=== PATIENT | female | born 1990 | race American Indian/Alaskan Native ===

== ENCOUNTER 2018-07-30 11:03 | Outpatient (CLI) | payer MEDICAID ==
[2018-07-30] MEDS ORDERED: LACTATED RINGERS 500 ML IV ONE (11:47)
[2018-07-30 12:07] LABS: Bacteria,Urine 1+ /HPF (Negative); Bilirubin,Urine NEG (Negative); Blood,Urine NEG (Negative); Color,Urine Yellow (Yellow); Mucus,Urine FEW /HPF; Protein,Urine <15 mg/dL mg/dL (Negative); Urobilinogen,Urine < 2.0 mg/dL (<2.0)
[2018-07-30 12:49] LABS: Hematocrit 32.8 % (30.3-42.9); Hemoglobin 11.2 gm/dl (10.1-14.3); Mean Corpuscular HGB Conc 34 % (30-34); Mean Corpuscular Volume 87 fl (79-97); Platelet Count 258 K/mm3 (140-440); Red Blood Count 3.77 M/mm3 (3.65-5.03); Red Cell Distribution Width 13.8 % (13.2-15.2)
[2018-07-30 13:04] LABS: Alanine Aminotransferase 16 units/L (7-56); Uric Acid 4.2 mg/dL (3.5-7.6)
[2018-07-30 13:33] VITALS: BP 139/96
== END 2018-07-30 13:51 | disposition home or self-care (01) ==
LOC: TRG 11:03
PROVIDERS: ATTEND Obstetrics & Gynecology
DX: O47.03 False labor before 37 completed weeks of gestation, third trimester (principal); I10 Essential (primary) hypertension; Z3A.37 37 weeks gestation of pregnancy; Z87.891 Personal history of nicotine dependence
CPT/HCPCS: 36415; 81001; 82565; 83615; 84450; 84460; 84550; 85027

== ENCOUNTER 2018-08-01 08:09 | Outpatient (CLI) | payer MEDICAID ==
[2018-08-01 09:24] LABS: Creatinine,Urine 57.9 mg/dL (0.1-20.0)
== END 2018-08-01 08:45 | disposition home or self-care (01) ==
LOC: TRG 08:09
PROVIDERS: ATTEND Obstetrics & Gynecology
DX: O47.03 False labor before 37 completed weeks of gestation, third trimester (principal); O10.013 Pre-existing essential hypertension complicating pregnancy, third trimester; Z3A.37 37 weeks gestation of pregnancy; Z87.891 Personal history of nicotine dependence
CPT/HCPCS: 82570; 84156

== ENCOUNTER 2018-08-03 16:20 | Inpatient (IN) | payer MEDICAID ==
[2018-08-03] MEDS ORDERED: LACTATED RINGERS 1,000 ML IV SCH ×2 (18:00→23:45)
[2018-08-03 19:08] LABS: Bilirubin,Urine NEG (Negative); Blood,Urine SM (Negative); Color,Urine Straw (Yellow); Protein,Urine <15 mg/dL mg/dL (Negative); RBC,Urine < 1.0 /HPF (0.0-6.0); Urobilinogen,Urine < 2.0 mg/dL (<2.0); WBC,Urine < 1.0 /HPF (0.0-6.0)
[2018-08-03 21:11] LABS: Hematocrit 35.1 % (30.3-42.9); Hemoglobin 11.9 gm/dl (10.1-14.3); Mean Corpuscular HGB Conc 34 % (30-34); Mean Corpuscular Volume 87 fl (79-97); Platelet Count 291 K/mm3 (140-440); Red Blood Count 4.04 M/mm3 (3.65-5.03); Red Cell Distribution Width 13.7 % (13.2-15.2)
[2018-08-03 22:19] LABS: Alanine Aminotransferase 18 units/L (7-56); Albumin 3.8 g/dL (3.9-5); BUN/Creatinine Ratio 12; Blood Urea Nitrogen 6 mg/dL (7-17); Calcium 8.8 mg/dL (8.4-10.2); Hemolysis Index 39
[2018-08-03] MEDS ORDERED: SUBLIMAZE IV PRN (23:18)
[2018-08-03] MEDS ORDERED: CERVIDIL VG ONE (23:18)
[2018-08-04] MEDS: AMBIEN PO PRN (00:47)
--- NOTE | 2018-08-04 07:32 | History and Physical Report ---
History of Present Illness Date of examination: 08/04/18 Chief complaint: Elevated BP's History of present illness: Pt is a 27yo BF EDC 08/20/18; EGA 37 5/7 weeks presents to L&D complaining of elevated BP's with a headache. She received 1 visit at [facility] @ 21 weeks and has a history of previous C Section x 1 followed by successful x 2, and history of hypertension with her previous , but not on any medications. records are available and GBS is unknown. Past History Past Medical History: hematologic disorders (sickle cell trait) Past Surgical History: section Family/Genetic History: sickle cell/trait Social history: no significant social history, single - Obstetrical History Expected Date of Delivery: 08/20/18 Actual Gestation: 37 Week(s) 5 Day(s) : 6 Medications and Allergies Allergies Allergy/AdvReac Type Severity Reaction Status Date / Time ranitidine HCl [From Zantac] Allergy Swelling Verified 09/08/14 17:30 Home Medications Medication Instructions Recorded Confirmed Last Taken Type Lisinopril 10 mg PO DAILY 05/21/14 05/21/14 05/21/14 History Lisinopril/Hydrochlorothiazide 1 each PO QDAY #30 tablet 05/21/14 Unknown Rx [Zestoretic 20-12.5 mg] metroNIDAZOLE 0.75%(NF) [Metrogel 1 applicatio TP QHS #5 tube 11/29/15 Unknown Rx 0.75% TOPICAL] Active Meds: Active Medications Butorphanol Tartrate (Stadol) 2 mg IV Q2H PRN PRN Reason: Labor Pain Fentanyl (Sublimaze) 100 mcg IV Q2H PRN PRN Reason: Pain , Severe (7-10) Lactated Ringer's (Lactated Ringers) 1,000 mls @ 125 mls/hr IV DIRECT EMILY Zolpidem Tartrate (Ambien) 10 mg PO QHS PRN PRN Reason: Insomnia Last Admin: 08/04/18 00:47 Dose: 10 mg Documented by: Review of Systems All systems: negative - Vital Signs Vital signs: Vital Signs Pulse BP 104 H 139/94 08/03/18 17:51 08/03/18 17:51 Temp Pulse Resp BP Pulse Ox 100 H 134/73 08/04/18 02:19 08/04/18 02:19 - Physical Exam Cardiovascular: Regular rate Lungs: Positive: Clear to auscultation Abdomen: Positive: normal appearance Genitourinary (Female): Positive: normal external genitalia Uterus: Positive: enlarged Extremities: Positive: normal - Obstetrical FHR: category 1 Uterine Contraction Monitor Mode: External Cervical Dilatation: 1 (per nurse) Cervical Effacement Percentage: 50 (per nurse) station: -2 Uterine Contraction Pattern: Irregular Uterine Tone Measurement Phase: Contraction Uterine Contraction Intensity: Mild Results Result Diagrams: 08/03/18 20:59 08/03/18 21:40 Abnormal lab results 08/03/18 Range/Units 21:40 Sodium 136 L (137-145) mmol/L BUN 6 L (7-17) mg/dL Creatinine 0.5 L (0.7-1.2) mg/dL Albumin 3.8 L (3.9-5) g/dL All other labs normal. Assessment and Plan - Patient Problems (1) 37 weeks gestation of Onset Date: 08/04/18 Current Visit: Yes Status: Acute Plan to address problem: A: IUP @ 37 5/7 weeks Chronic hypertension - uncontrolled Poor care Previous C Section x 1 Previous x 2 P: Admit to L&D for cervidil/pitocin induction of labor (2) Hypertension Onset Date: 08/04/18 Current Visit: No Status: Acute Qualifiers: Hypertension type: essential hypertension Qualified Code(s): I10 - Essential (primary) hypertension
[2018-08-04] MEDS ORDERED: MINERAL OIL PO PRN (16:23)
[2018-08-04] MEDS ORDERED: BRETHINE SUB-Q PRN (16:23)
[2018-08-04] MEDS ORDERED: NARCAN 0.4 MG/1 ML IV PRN (16:23)
[2018-08-04] MEDS ORDERED: BRETHINE IVP PRN (16:23)
[2018-08-04] MEDS ORDERED: XYLOCAINE 2% INFILTRATI ONE (16:23)
[2018-08-04] MEDS ORDERED: ZOFRAN IV PRN (16:23)
[2018-08-04] MEDS ORDERED: PITOCin/NS 20 UNIT/1000ML DRIP 20 UNITS/1,000 ML BAG IV SCH (17:00)
[2018-08-04] MEDS ORDERED: PITOCin/NS 30 UNIT/500ML 30 UNITS/500 ML BAG IV SCH ×2 (17:00)
[2018-08-04] MEDS ORDERED: LACTATED RINGERS 1,000 ML IV SCH (17:00)
[2018-08-04] MEDS ORDERED: AMPICILLIN/NS 2 GM/100 ML 2 GM/100 ML BAG IV ONE (17:00)
[2018-08-04] MEDS: PITOCin/NS 30 UNIT/500ML 30 UNITS/500 ML BAG IV SCH ×2 (17:04→17:35)
[2018-08-04] MEDS: AMPICILLIN/NS 1 GM/50 ML 1 GM/50 ML BAG IV SCH (21:12)
[2018-08-05] MEDS: AMPICILLIN/NS 1 GM/50 ML 1 GM/50 ML BAG IV SCH ×4 (01:42→15:45)
[2018-08-05] MEDS: AMBIEN PO PRN (01:45)
--- NOTE | 2018-08-05 09:29 | Progress Note ---
Assessment and Plan - Patient Problems (1) 37 weeks gestation of Onset Date: 08/04/18 Current Visit: Yes Status: Acute Plan to address problem: A: IUP @ 37 6/7 weeks Chronic hypertension - uncontrolled Poor care Previous C Section x 1 Previous x 2 P: Continue with pitocin induction of labor (2) Hypertension Onset Date: 08/04/18 Current Visit: No Status: Acute Qualifiers: Hypertension type: essential hypertension Qualified Code(s): I10 - Essential (primary) hypertension Subjective - Subjective Date of service: 08/05/18 Principal diagnosis: IUP @ 37 6/7 weeks; Chronic hypertension Interval history: Pt is a 27yo BF EDC 08/20/18; EGA 37 6/7 weeks who presented to L&D complaining of elevated BP's with a headache. She received 1 visit at [facility] @ 21 weeks and has a history of previous C Section x 1 followed by successful x 2, and history of hypertension with her previous , but not on any medications. records are available and GBS is unknown. She received cervidil followed by low dose pitocin last night and is sudarshan q 3-5 mins. She denies headaches or blurred vision. Patient reports: movement normal, contractions, no new complaints, no loss of fluid, no vaginal bleeding Objective - Vital Signs Vital Signs: Vital Signs - 12hr 08/04/18 08/04/18 08/04/18 22:16 22:19 22:20 Temperature Pulse Rate 96 H 96 H 96 H Respiratory Rate Blood Pressure 121/101 153/91 149/79 08/04/18 08/04/18 08/05/18 23:09 23:10 00:09 Temperature 97.6 F Pulse Rate 93 H 87 Respiratory 18 Rate Blood Pressure 138/86 136/85 08/05/18 08/05/18 08/05/18 01:10 02:10 03:10 Temperature Pulse Rate 82 95 H 97 H Respiratory Rate Blood Pressure 141/83 153/101 140/69 08/05/18 08/05/18 08/05/18 04:00 04:02 04:04 Temperature 96.5 F L Pulse Rate 99 H 93 H Respiratory 16 Rate Blood Pressure 122/95 114/80 08/05/18 08/05/18 08/05/18 05:04 06:04 07:13 Temperature Pulse Rate 94 H 90 98 H Respiratory Rate Blood Pressure 125/77 121/81 141/78 08/05/18 08/05/18 07:45 09:15 Temperature 98.2 F Pulse Rate 91 H Respiratory 16 Rate Blood Pressure 138/80 - Exam Abdomen: Present: normal appearance, soft Uterus: Present: normal FHR: category 1 Uterine Contraction Monitor Mode: External Cervical Dilatation: 2 Cervical Effacement Percentage: 50 Uterine Contraction Pattern: Regular Uterine Tone Measurement Phase: Contraction Uterine Contraction Intensity: Mild - Labs Labs: Abnormal Labs 08/03/18 21:40 Sodium 136 L BUN 6 L Creatinine 0.5 L Albumin 3.8 L
[2018-08-05] MEDS: STADOL IV PRN (22:39)
[2018-08-06] MEDS: STADOL IV PRN (04:07)
[2018-08-06] MEDS: AMPICILLIN/NS 1 GM/50 ML 1 GM/50 ML BAG IV SCH (05:29)
--- NOTE | 2018-08-06 07:30 | Anesthesia Consultation ---
Anesthesia Consult and Med Hx Date of service: 08/06/18 - Airway Anesthetic Teeth Evaluation: Good ROM Head & Neck: Adequate Mental/Hyoid Distance: Adequate Mallampati Class: Class II Intubation Access Assessment: Probably Good - Pre-Operative Health Status ASA Pre-Surgery Classification: ASA3 Proposed Anesthetic Plan: Epidural, Spinal - Pulmonary Hx Asthma: No COPD: No Hx Pneumonia: No - Cardiovascular System Hx Hypertension: Yes (pre-eclampsia) - Central Nervous System Hx Seizures: No Hx Psychiatric Problems: No - Endocrine Hx Renal Disease: No Hx End Stage Renal Disease: No Hx Hypothyroidism: No Hx Hyperthyroidism: No - Hematic Hx Anemia: No Hx Sickle Cell Disease: Yes (trait) - Other Systems Hx Alcohol Use: No
--- NOTE | 2018-08-06 07:34 | Anesthesia Day of Surgery ---
Anesthesia Day of Surgery - Day of Surgery Patient Examined: Yes Patient H&P Reviewed: Yes Patient is NPO: Yes
--- NOTE | 2018-08-06 07:43 | Progress Note ---
Assessment and Plan - Patient Problems (1) 37 weeks gestation of Onset Date: 08/04/18 Current Visit: Yes Status: Acute Plan to address problem: A: IUP @ 38 0/7 weeks Chronic hypertension - uncontrolled Poor care Previous C Section x 1 Previous x 2 Failure to progress P: Will deliver by Repeat C Section. (2) Hypertension Onset Date: 08/04/18 Current Visit: No Status: Acute Qualifiers: Hypertension type: essential hypertension Qualified Code(s): I10 - Essential (primary) hypertension Subjective - Subjective Date of service: 08/06/18 Principal diagnosis: IUP @ 38 0/7 weeks; Chronic hypertension Interval history: Pt is a 27yo BF EDC 08/20/18; EGA 38 0/7 weeks who presented to L&D co mplaining of elevated BP's with a headache. She received 1 visit at [facility] @ 21 weeks and has a history of previous C Section x 1 followed by successful x 2, and history of hypertension with her previous , but not on any medications. records are available and GBS is unknown. She received cervidil followed by low dose pitocin then high dose pitocin and was sudarshan q 3-5 mins without cervical change all night long. She will therefore be delivered by C Section due to failure to progress. She denies headaches or blurred vision. Patient reports: movement normal, contractions, no new complaints, no loss of fluid, no vaginal bleeding Objective - Vital Signs Vital Signs: Vital Signs - 12hr 08/05/18 08/05/18 08/05/18 19:53 20:16 20:17 Temperature 97.4 F L Pulse Rate 77 81 Respiratory 18 Rate Blood Pressure 135/89 136/83 O2 Sat by Pulse Oximetry 08/05/18 08/05/18 08/05/18 20:47 21:17 21:47 Temperature Pulse Rate 88 87 137 H Respiratory Rate Blood Pressure 139/90 135/82 134/75 O2 Sat by Pulse Oximetry 08/05/18 08/05/18 08/05/18 22:17 22:47 23:00 Temperature Pulse Rate 89 86 89 Respiratory Rate Blood Pressure 143/92 129/91 O2 Sat by Pulse 98 Oximetry 08/05/18 08/05/18 08/05/18 23:05 23:10 23:15 Temperature Pulse Rate 89 86 103 H Respiratory Rate Blood Pressure O2 Sat by Pulse 99 97 99 Oximetry 08/05/18 08/05/18 08/05/18 23:17 23:20 23:25 Temperature Pulse Rate 94 H 102 H 101 H Respiratory Rate Blood Pressure 139/99 O2 Sat by Pulse 100 99 Oximetry 08/05/18 08/05/18 08/05/18 23:26 23:30 23:35 Temperature Pulse Rate 85 90 102 H Respiratory Rate Blood Pressure 148/90 O2 Sat by Pulse 100 100 Oximetry 08/05/18 08/05/18 08/05/18 23:40 23:45 23:47 Temperature Pulse Rate 82 96 H 88 Respiratory Rate Blood Pressure 133/85 O2 Sat by Pulse 100 100 Oximetry 08/05/18 08/05/18 08/06/18 23:50 23:55 00:00 Temperature Pulse Rate 84 99 H 80 Respiratory Rate Blood Pressure O2 Sat by Pulse 97 100 98 Oximetry 08/06/18 08/06/18 08/06/18 00:01 00:05 00:10 Temperature 98.1 F Pulse Rate 86 93 H Respiratory 18 Rate Blood Pressure O2 Sat by Pulse 97 98 Oximetry 08/06/18 08/06/18 08/06/18 00:15 00:17 00:20 Temperature Pulse Rate 89 96 H 89 Respiratory Rate Blood Pressure 131/88 O2 Sat by Pulse 98 97 Oximetry 08/06/18 08/06/18 08/06/18 00:25 00:30 00:35 Temperature Pulse Rate 97 H 89 97 H Respiratory Rate Blood Pressure O2 Sat by Pulse 97 99 98 Oximetry 08/06/18 08/06/18 08/06/18 00:40 00:45 00:47 Temperature Pulse Rate 78 80 86 Respiratory Rate Blood Pressure 126/86 O2 Sat by Pulse 98 98 Oximetry 08/06/18 08/06/18 08/06/18 00:50 00:55 01:00 Temperature Pulse Rate 82 82 84 Respiratory Rate Blood Pressure O2 Sat by Pulse 98 97 98 Oximetry 08/06/18 08/06/18 08/06/18 01:05 01:10 01:15 Temperature Pulse Rate 82 81 87 Respiratory Rate Blood Pressure O2 Sat by Pulse 98 98 99 Oximetry 08/06/18 08/06/18 08/06/18 01:17 01:18 01:20 Temperature Pulse Rate 71 79 73 Respiratory Rate Blood Pressure 146/100 O2 Sat by Pulse 80 L 100 Oximetry 08/06/18 08/06/18 08/06/18 01:25 01:30 01:35 Temperature Pulse Rate 79 80 79 Respiratory Rate Blood Pressure O2 Sat by Pulse 100 100 100 Oximetry 08/06/18 08/06/18 08/06/18 01:40 01:45 01:47 Temperature Pulse Rate 85 90 91 H Respiratory Rate Blood Pressure 133/83 O2 Sat by Pulse 100 100 Oximetry 08/06/18 08/06/18 08/06/18 01:50 01:55 02:00 Temperature Pulse Rate 74 80 81 Respiratory Rate Blood Pressure O2 Sat by Pulse 100 100 100 Oximetry 08/06/18 08/06/18 08/06/18 02:05 02:10 02:15 Temperature Pulse Rate 77 84 79 Respiratory Rate Blood Pressure O2 Sat by Pulse 100 100 100 Oximetry 08/06/18 08/06/18 08/06/18 02:18 02:20 02:25 Temperature Pulse Rate 78 75 82 Respiratory Rate Blood Pressure 150/95 O2 Sat by Pulse 100 100 Oximetry 08/06/18 08/06/18 08/06/18 02:29 02:31 02:36 Temperature Pulse Rate 54 L 106 H 85 Respiratory Rate Blood Pressure O2 Sat by Pulse 72 L 100 100 Oximetry 08/06/18 08/06/18 08/06/18 02:41 02:46 02:47 Temperature Pulse Rate 89 86 80 Respiratory Rate Blood Pressure 137/92 O2 Sat by Pulse 99 99 Oximetry 08/06/18 08/06/18 08/06/18 02:51 02:56 03:01 Temperature Pulse Rate 80 91 H 88 Respiratory Rate Blood Pressure O2 Sat by Pulse 99 98 98 Oximetry 08/06/18 08/06/18 08/06/18 03:06 03:11 03:16 Temperature Pulse Rate 91 H 84 82 Respiratory Rate Blood Pressure O2 Sat by Pulse 99 98 99 Oximetry 08/06/18 08/06/18 08/06/18 03:17 03:21 03:26 Temperature Pulse Rate 97 H 83 89 Respiratory Rate Blood Pressure 160/104 O2 Sat by Pulse 99 98 Oximetry 08/06/18 08/06/18 08/06/18 03:31 03:36 03:41 Temperature Pulse Rate 84 83 87 Respiratory Rate Blood Pressure O2 Sat by Pulse 99 98 98 Oximetry 08/06/18 08/06/18 08/06/18 03:46 03:47 03:51 Temperature Pulse Rate 82 82 78 Respiratory Rate Blood Pressure 129/87 O2 Sat by Pulse 98 98 Oximetry 08/06/18 08/06/18 08/06/18 03:56 04:01 04:06 Temperature Pulse Rate 88 79 78 Respiratory Rate Blood Pressure O2 Sat by Pulse 99 98 99 Oximetry 08/06/18 08/06/18 08/06/18 04:07 04:09 04:11 Temperature 98.7 F Pulse Rate 80 Respiratory 20 Rate Blood Pressure O2 Sat by Pulse 99 Oximetry 08/06/18 08/06/18 08/06/18 04:16 04:17 04:21 Temperature Pulse Rate 91 H 88 85 Respiratory Rate Blood Pressure 149/102 O2 Sat by Pulse 99 94 98 Oximetry 08/06/18 08/06/18 08/06/18 05:18 05:47 06:17 Temperature Pulse Rate 75 85 73 Respiratory Rate Blood Pressure 168/92 134/83 152/91 O2 Sat by Pulse Oximetry 08/06/18 08/06/18 06:47 07:17 Temperature Pulse Rate 86 83 Respiratory Rate Blood Pressure 139/80 142/89 O2 Sat by Pulse Oximetry - Exam Cardiovascular: Regular rate Abdomen: Present: normal appearance, soft Uterus: Present: normal FHR: category 1 Uterine Contraction Monitor Mode: External Cervical Dilatation: 4 (per nurse) Cervical Effacement Percentage: 50 (per nurse) station: -2 Uterine Contraction Pattern: Regular Uterine Tone Measurement Phase: Contraction Uterine Contraction Intensity: Moderate - Labs Labs: Abnormal Labs 08/03/18 21:40 Sodium 136 L BUN 6 L Creatinine 0.5 L Albumin 3.8 L
[2018-08-06] MEDS ORDERED: PITOCin/NS 20 UNIT/1000ML DRIP 20 UNITS/1,000 ML BAG IV SCH ×2 (08:00→10:00)
[2018-08-06] MEDS ORDERED: ANCEF/STERILE WATER 2 GM/20 ML 2 GM/20 ML SYRINGE IV NR (08:00)
[2018-08-06] MEDS ORDERED: SODIUM CHLORIDE FLUSH SYRINGE 10 ML IV PRN (08:00)
[2018-08-06] MEDS ORDERED: PEPCID IV NR (08:00)
[2018-08-06] MEDS ORDERED: BICITRA PO NR (08:00)
[2018-08-06] MEDS ORDERED: BENADRYL IV PRN (08:00)
[2018-08-06] MEDS ORDERED: PHENERGAN PO PRN (08:30)
[2018-08-06] MEDS ORDERED: TORADOL IV PRN (08:30)
[2018-08-06] MEDS ORDERED: NARCAN 0.4 MG/1 ML IV PRN ×2 (08:30→10:00)
[2018-08-06] MEDS ORDERED: DILAUDID IV PRN ×2 (08:30→09:00)
[2018-08-06] MEDS ORDERED: ZOFRAN IV PRN (08:30)
[2018-08-06] MEDS ORDERED: PHENERGAN PR PRN (08:30)
[2018-08-06] MEDS ORDERED: SENSORCAINE/DEXTR 0.75-8.25% INFILTRATI ONE (08:40)
[2018-08-06] MEDS ORDERED: LACTATED RINGERS 1,000 ML IV SCH (09:00)
[2018-08-06] MEDS ORDERED: REGLAN IV ONE (09:00)
[2018-08-06] MEDS ORDERED: WATER FOR IRRIG STERILE IR ONE (09:10)
[2018-08-06] MEDS ORDERED: NACL 0.9% IR ONE (09:10)
[2018-08-06] MEDS ORDERED: XYLOCAINE MPF 2% ONE (09:24)
[2018-08-06] MEDS ORDERED: ASTRAMORPH PF 10MG/10ML ONE (09:26)
--- NOTE | 2018-08-06 09:58 | Operative Report ---
Operative Report Operative Report: Date of procedure: 08/06/2018 Pre-operative diagnosis: 1. Intrauterine at 38-0/7 weeks 2. Chroni c hypertension 3. Previous 1 4. Previous 2 5. Failure to progress Post-operative diagnosis: Same Procedure name(s): Repeat low transverse section Surgeon: Yimi Fox MD Para Machine Operator: None Anesthesia: Spinal anesthesia by Dr. Morales EBL: 600 mL Findings: A 2585 g male Apgars 8 at 1 minute and 9 at 5 minutes. Clear amniotic fluid. Normal uterus. Normal tubes and ovaries bilaterally. Procedure: After the patient was prepped and draped in usual sterile fashion, and after satisfactory level of epidural anesthesia was obtained, the skin knife was used to make a transverse skin incision through the previous skin scar. The incision was excised down to layer of the fascia, which was nicked in the midline and extended laterally using the Bovie cautery. The rectus muscles were dissected off the rectus fascia both superiorly and inferiorly. The rectus bellies in the midline, and the peritoneum was entered under direct visualization. The peritoneal incision was extended superiorly and inferiorly. A bladder flap was created and the bladder blade was then placed. The uterus was scored in a curvilinear linear fashion, entered in the midline revealing clear amniotic fluid. The 's head was delivered onto the surgical field, and the oropharynx and nasopharynx were bulb suctioned. The rest of the 's body was delivered, cord was doubly clamped and cut and the infant was handed to the waiting respiratory team. The placenta was manually removed from the uterus, and the uterus removed from its normal anatomical position. After gentle uterine lavage, the incision was inspected and found to be without extensions. It was then closed in 2 layers using 0 Vicryl suture in a running interlocking fashion, the second layer imbricating the first. After good hemostasis was achieved, copious amounts or irrigation was performed, and the gutters were suctioned free of blood and blood clots. The Tisseel sealant was sprayed across the uterine incision. The uterus was then returned to its normal anatomical position, and after excellent hemostasis assured, the peritoneum was re-approximated using 3-0 Vicryl suture in a running interlocking fashion, and then the rectus muscles were re-approximated using 3-0 Vicryl suture in a [id number] configuration. The fascia was then re-approximated using 0 Vicryl suture in running interlocking fashion. The subcutaneous layer was made hemostatic using Bovie cautery, the Tisseel sealant was sprayed across the fascial incision and the skin edges re-approximated using 4-0 Vicryl suture in a sub-cuticular fashion. Patient tolerated the procedure well was transported to recovery in stable condition.
[2018-08-06] MEDS ORDERED: TYLENOL PO PRN (10:00)
[2018-08-06] MEDS ORDERED: SENOKOT PO PRN (10:00)
[2018-08-06] MEDS ORDERED: MYLICON PO PRN (10:00)
[2018-08-06] MEDS ORDERED: SODIUM CHLORIDE FLUSH SYRINGE 10 ML IV SCH (10:00)
[2018-08-06] MEDS ORDERED: LANSINOH TP PRN (10:00)
[2018-08-06] MEDS ORDERED: TUCKS PAD TP PRN (10:00)
[2018-08-06] MEDS ORDERED: MILK OF MAGNESIA PO PRN (10:00)
[2018-08-06] MEDS ORDERED: D5LR 1,000 ML IV SCH (10:00)
[2018-08-06] MEDS ORDERED: NEO SYNEPHRINE/NS Syringe(OR USE) IV ONE (10:02)
[2018-08-06] MEDS: ANCEF/NS 1 GM/50 ML 1 GM/50 ML BAG IV SCH (18:44)
[2018-08-06] MEDS: NORMODYNE PO SCH (18:44)
[2018-08-06] MEDS: PERCOCET 5/325 PO PRN (20:05)
[2018-08-06 21:43] LABS: Hematocrit 31.8 % (30.3-42.9); Hemoglobin 11.1 gm/dl (10.1-14.3)
[2018-08-07] MEDS: ANCEF/NS 1 GM/50 ML 1 GM/50 ML BAG IV SCH ×2 (00:01→07:38)
[2018-08-07] MEDS: PERCOCET 5/325 PO PRN (04:19)
[2018-08-07] MEDS ORDERED: BOOSTRIX IM ONE (06:00)
[2018-08-07] MEDS ORDERED: M-M-R II VACCINE SUB-Q ONE (10:01)
[2018-08-07] MEDS: FEOSOL PO SCH (10:02)
[2018-08-07] MEDS: NORMODYNE PO SCH ×2 (10:02→21:29)
[2018-08-07] MEDS: PRENATAL VITAMIN PO SCH (10:02)
--- NOTE | 2018-08-07 10:16 | Progress Note ---
Assessment and Plan - Patient Problems (1) 37 weeks gestation of Onset Date: 08/04/18 Current Visit: Yes Status: Resolved (2) Hypertension Onset Date: 08/04/18 Current Visit: No Status: Chronic Qualifiers: Hypertension type: essential hypertension Qualified Code(s): I10 - Essential (primary) hypertension (3) Status post Onset Date: 08/07/18 Current Visit: Yes Status: Resolved Plan to address problem: A: S/P Repeat C Section - POD #1 Doing well Chronic hypertension - stable on Labetolol 200mg BID P: Continue RPOC Anticipate discharge in 24-48hrs Subjective - Subjective Date of service: 08/07/18 Principal diagnosis: s/p C Section - POD #1 Interval history: Pt is feeling well without complaints. Bleeding improved. She is tolerating a liquid diet without nausea or vomiting. Patient reports: appetite normal, voiding normally, pain well controlled, flatus, ambulating normally, no dizzy ambulation, no nauseated [place]: doing well, nursing well, bottle feeding Objective - Vital Signs Latest vital signs: Vital Signs Temp Pulse Resp BP BP Pulse Ox 08/07/18 10:02 104 H 127/83 08/07/18 09:02 97.7 F 104 H 18 127/83 97 08/07/18 05:28 97.5 F L 99 H 20 125/89 96 08/07/18 05:17 18 08/07/18 04:19 20 08/07/18 04:00 18 128/78 08/06/18 23:16 130/80 08/06/18 21:34 98.1 F 87 20 134/84 98 08/06/18 21:05 18 08/06/18 20:05 16 08/06/18 16:18 97.9 F 73 18 147/96 99 08/06/18 11:50 98.2 F 70 20 131/79 08/06/18 11:00 98.3 F 87 18 136/78 100 08/06/18 10:45 70 16 132/88 100 08/06/18 10:30 73 18 127/86 100 Intake and Output 08/06/18 08/07/18 08/07/18 22:59 06:59 14:59 Intake Total 960 50 600 Output Total 800 Balance 160 50 600 Intake: IV 50 ANCEF/NS 1 GM/50 ML 1 gm 50 In 50 ml @ 100 mls/hr IV Q8H [facility] Rx#:[id number] Oral 600 360 Intake, Free Water 360 240 Output: Urine 800 Indwelling Catheter 800 Other: Total, Intake Amount 600 360 Total, Output Amount 800 # Voids Indwelling Catheter 1 1 Estimated Blood Loss 600 - Exam Abdomen: Present: normal appearance, soft Uterus: Present: normal, firm, fundal height below umbilicus Extremities: Present: normal Incision: Present: normal, dry, intact, dressed - Labs Labs: Laboratory Tests 08/03/18 08/03/18 08/03/18 17:21 20:59 21:40 WBC 7.4 RBC 4.04 Hgb 11.9 Hct 35.1 MCV 87 MCH 30 MCHC 34 RDW 13.7 Plt Count 291 Sodium 136 L Potassium 4.6 Chloride 102.5 Carbon Dioxide 24 Anion Gap 14 BUN 6 L Creatinine 0.5 L Estimated GFR > 60 BUN/Creatinine Ratio 12 Glucose 71 Calcium 8.8 Total Bilirubin 0.20 AST 19 ALT 18 Alkaline Phosphatase 100 Total Protein 6.6 Albumin 3.8 L Albumin/Globulin Ratio 1.4 Urine Color Straw Urine Turbidity Clear Urine pH 7.0 Ur Specific Baring 1.005 Urine Protein <15 mg/dl Urine Glucose (UA) Neg Urine Ketones Neg Urine Blood Sm Urine Nitrite Neg Urine Bilirubin Neg Urine Urobilinogen < 2.0 Ur Leukocyte Esterase Neg Urine WBC (Auto) < 1.0 Urine RBC (Auto) < 1.0 U Epithel Cells (Auto) 5.0 Blood Type Antibody Screen 08/04/18 08/06/18 01:00 21:27 WBC RBC Hgb 11.1 Hct 31.8 MCV MCH MCHC RDW Plt Count Sodium Potassium Chloride Carbon Dioxide Anion Gap BUN Creatinine Estimated GFR BUN/Creatinine Ratio Glucose Calcium Total Bilirubin AST ALT Alkaline Phosphatase Total Protein Albumin Albumin/Globulin Ratio Urine Color Urine Turbidity Urine pH Ur Specific Baring Urine Protein Urine Glucose (UA) Urine Ketones Urine Blood Urine Nitrite Urine Bilirubin Urine Urobilinogen Ur Leukocyte Esterase Urine WBC (Auto) Urine RBC (Auto) U Epithel Cells (Auto) Blood Type A POSITIVE Antibody Screen Negative
[2018-08-07] MEDS: NORCO 5/325 PO PRN ×2 (10:59→17:30)
[2018-08-07] MEDS: IBUPROFEN PO PRN ×2 (11:00→17:30)
[2018-08-08] MEDS: IBUPROFEN PO PRN ×2 (00:45→06:43)
[2018-08-08] MEDS: PERCOCET 5/325 PO PRN ×2 (00:45→12:26)
[2018-08-08 07:54] VITALS: BP 131/87
--- NOTE | 2018-08-08 10:42 | Progress Note ---
Assessment and Plan - Patient Problems (1) 37 weeks gestation of Onset Date: 08/04/18 Current Visit: Yes Status: Resolved (2) Hypertension Onset Date: 08/04/18 Current Visit: No Status: Chronic Qualifiers: Hypertension type: essential hypertension Qualified Code(s): I10 - Essential (primary) hypertension (3) Status post Onset Date: 08/07/18 Current Visit: Yes Status: Resolved Plan to address problem: A: S/P Repeat C Section - POD #2 Doing well Chronic hypertension - stable on Labetolol 200mg BID P: May go home today Follow up in the office in 1 week for BP check Subjective - Subjective Date of service: 08/08/18 Principal diagnosis: s/p C Section - POD #2 Interval history: Pt is feeling well without complaints. She is tolerating a reg diet without nausea or vomiting, ambulating and voiding without difficulty. She wants to go home today. Patient reports: appetite normal, voiding normally, pain well controlled, flatus, ambulating normally, no dizzy ambulation, no nauseated [place]: doing well, nursing well, bottle feeding Objective - Vital Signs Latest vital signs: Vital Signs Temp Pulse Resp BP BP Pulse Ox 08/08/18 07:30 98.0 F 82 18 131/87 08/08/18 06:43 18 08/08/18 00:45 18 08/07/18 23:30 98.7 F 77 16 101/74 08/07/18 21:29 99 H 118/68 08/07/18 16:39 97.8 F 93 H 18 116/75 99 Intake and Output 08/07/18 08/08/18 08/08/18 22:59 06:59 14:59 Intake Total 1080 Balance 1080 Intake: Oral 360 Intake, Free Water 720 Other: Total, Intake Amount 360 # Voids Indwelling Catheter 3 - Exam Abdomen: Present: normal appearance, soft Uterus: Present: normal, firm, fundal height below umbilicus Extremities: Present: normal Incision: Present: normal, dry, intact
--- NOTE | 2018-08-08 10:56 | Discharge Summary ---
Providers - Providers Date of Admission: 08/04/18 16:23 Date of discharge: 08/08/18 Attending physician: SAWYER HERZOG Primary care physician: SAWYER HERZOG Hospitalization Reason for admission: induction of labor, IUP at term, other (Previous C Section; Chronic hypertension - uncontrolled) Delivery: Procedure: section, repeat low transverse Episiotomy: none Laceration: none Incision: normal, dry, intact Other procedures: none complications: none Discharge diagnosis: IUP at term delivered baby: male Hospital course: Pt is a 27yo BF EDC 08/20/18; EGA 38 0/7 weeks who presented to L&D complaining of elevated BP's with a headache. She received 1 visit at [facility] @ 21 weeks and had a history of previous C Section x 1 followed by successful x 2, and history of hypertension with her previous , but was not on any medications. records were available and GBS was unknown. She received cervidil followed by low dose pitocin then high dose pitocin and was sudarshan q 3-5 mins without cervical change. She underwent an uncomplicated Repeat C Section due to failure to progress. By POD #2 she was tolerating a reg diet without nausea or vomiting, ambulating and voiding without difficulty. Her BP's remained stable on Labetolol 200mg BID. She was therefore discharged to home on POD #2 in stable condition. Condition at discharge: Good Disposition: DC-01 TO HOME OR SELFCARE - Discharge Diagnoses (1) 37 weeks gestation of Status: Resolved (2) Hypertension Status: Chronic Qualifiers: Hypertension type: essential hypertension Qualified Code(s): I10 - Essential (primary) hypertension (3) Status post Status: Resolved Plan - Discharge Medications Prescriptions: Ferrous Sulfate [Feosol 325 MG tab] 325 mg PO BID #60 tablet HYDROcodone/APAP 5-325 [[place] 5-325 mg TAB] 1 each PO Q6HR PRN #30 tablet PRN Reason: Pain, Moderate (4-6) Ibuprofen [Motrin 800 MG tab] 800 mg PO Q6H PRN #30 tablet PRN Reason: Pain, Mild (1-3) Labetalol [Normodyne TAB] 200 mg PO BID #60 tablet Vit-Fe Fumar-FA [ Vitamin] 1 each PO QDAY #30 tablet - Provider Discharge Summary Activity: routine, no sex for 6 weeks, no heavy lifting 4 weeks, no strenuous exercise Diet: routine Instructions: routine Additional instructions: [] Smoking cessation referral if applicable(refer to patient education folder for contact #) [] Refer to [facility] Book[facility] Call your doctor immediately for: * Fever > 100.5 * Heavy vaginal bleeding ( >1 pad per hour) * Severe persistent headache * Shortness of breath * Reddened, hot, painful area to leg or breast * Drainage or odor from incision. * Keep incision clean and dry at all times and follow doctor's instructions regarding bathing/showering Follow up in the office in 1 week for BP check - Follow up plan Follow up: SAWYER HERZOG MD [Primary Care Provider] - 7 Days
[2018-08-08] MEDS: NORMODYNE PO SCH (11:45)
[2018-08-08] MEDS: PRENATAL VITAMIN PO SCH (11:50)
[2018-08-08] MEDS: FEOSOL PO SCH (17:44)
== END 2018-08-08 15:15 | disposition home or self-care (01) | DRG 765 ==
LOC: TRG 16:20 → LD 17:24 → TRG 08-04 16:23 → LD 08-04 16:23 → UNDOADMIN 08-05 09:42 → LD 08-05 09:42 → OB 08-06 12:02
PROVIDERS: ADMIT Obstetrics & Gynecology; ATTEND Obstetrics & Gynecology
PROC: 10D00Z1 Extraction of Products of Conception, Low, Open Approach (ICD-10-PCS; principal; 2018-08-06)
PROC: 3E0234Z Introduction of Serum, Toxoid and Vaccine into Muscle, Percutaneous Approach (ICD-10-PCS; 2018-08-07)
DX: O34.211 Maternal care for low transverse scar from previous cesarean delivery (principal); O10.92 Unspecified pre-existing hypertension complicating childbirth; O62.2 Other uterine inertia; Z37.0 Single live birth; Z3A.37 37 weeks gestation of pregnancy; Z86.2 Personal history of diseases of the blood and blood-forming organs and certain disorders involving the immune mechanism; Z83.2 Family history of diseases of the blood and blood-forming organs and certain disorders involving the immune mechanism; Z88.8 Allergy status to other drugs, medicaments and biological substances; Z23 Encounter for immunization
CPT/HCPCS: 36415; 59200; 80053; 81001; 85014; 85018; 85027; 86850; 86900; 86901; G0378; C9250; J0290; J0595; J0690; J1885; J2274; J2370; J2590; J2765; J7120

== ENCOUNTER 2019-05-14 15:12 | Emergency (ER) | payer MEDICAID ==
[2019-05-14 15:42] VITALS: BP 152/108
--- NOTE | 2019-05-14 15:43 | Event Note ---
ED Screening Note Date of service: 05/14/19 Time: 15:41 ED Screening Note: 28 y o femal epresents with FB feeling in left eye with pain and swelling x yesterday at work states feel fb with movement of eye eye lid swelling This initial assessment/diagnostic orders/clinical plan/treatment(s) is/are subject to change based on patients health status, clinical progression and re- assessment by fellow clinical providers in the ED. Further treatment and workup at subsequent clinical providers discretion. Patient/guardian urged not to elope from the ED as their condition may be serious if not clinically assessed and managed. Initial orders include: EYE KIT eye flush ACC eval
== END 2019-05-14 18:30 | disposition left against medical advice (07) ==
LOC: ED 15:12
DX: H57.12 Ocular pain, left eye (principal); Z53.21 Procedure and treatment not carried out due to patient leaving prior to being seen by health care provider

== ENCOUNTER 2021-05-05 09:08 | Outpatient (CLI) | payer MEDICAID ==
[2021-05-05 09:34] VITALS: BP 135/84
--- NOTE | 2021-05-05 12:37 | Ultrasound Report ---
ULTRASOUND OBSTETRIC LIMITED INDICATION / CLINICAL INFORMATION: Vaginal bleeding. TECHNIQUE: Transabdominal. COMPARISON: None available. FINDINGS: HEART RATE (beats per minute): 156 PLACENTA: Transverse, fundal placenta without acute abnormality. No evidence of abruption or previa. ADDITIONAL FINDINGS: None. IMPRESSION: 1. Limited evaluation of the placenta demonstrates a transverse fundal placenta without acute abnorm ality. 2. heart rate measures 156 bpm. Signer Name: Kodak Burt MD Signed: 05/05/2021 12:33 PM Workstation Name: [id number]
== END 2021-05-05 10:56 | disposition home or self-care (01) ==
LOC: TRG 09:08 → APU 09:10 → TRG 10:56
PROVIDERS: ATTEND Obstetrics & Gynecology
DX: O46.90 Antepartum hemorrhage, unspecified, unspecified trimester (principal); Z3A.00 Weeks of gestation of pregnancy not specified
CPT/HCPCS: 76815

== ENCOUNTER 2021-05-30 21:17 | Outpatient (CLI) | payer MEDICAID, OTHER ==
[2021-05-30 23:43] LABS: Bilirubin,Urine NEG (Negative); Blood,Urine NEG (Negative); Color,Urine Straw (Yellow); Hemoglobin 11.3 gm/dl (10.1-14.3); Mean Corpuscular HGB Conc 33 % (30-34); Mean Corpuscular Volume 89 fl (79-97); Platelet Count 261 K/mm3 (140-440); Protein,Urine <15 mg/dL mg/dL (Negative); Red Cell Distribution Width 13.8 % (13.2-15.2); Urobilinogen,Urine < 2.0 mg/dL (<2.0)
[2021-05-31 00:03] LABS: Alanine Aminotransferase 23 units/L (7-56)
[2021-05-31 01:28] VITALS: BP 130/86
[2021-05-31 02:44] LABS: Uric Acid 4.3 mg/dL (3.5-7.6)
== END 2021-05-31 01:59 | disposition home or self-care (01) ==
LOC: TRG 21:17 → APU 21:20 → TRG 05-31 01:59
PROVIDERS: ATTEND Obstetrics & Gynecology Gynecology
DX: Z34.93 Encounter for supervision of normal pregnancy, unspecified, third trimester (principal); Z3A.31 31 weeks gestation of pregnancy
CPT/HCPCS: 36415; 59025; 81001; 82565; 83615; 84450; 84460; 84550; 85027